=== PATIENT | female | born 1955 | race Caucasian/White ===

== ENCOUNTER 2018-07-12 12:45 | Day surgery (SDC) | payer OTHER ==
[2018-07-12] MEDS ORDERED: MIDAZOLAM 1 MG/ML 2 ML INJ ×2 (15:24)
[2018-07-12] MEDS ORDERED: FENTAnyl 50 MCG/ML VIAL (15:25)
[2018-07-12] MEDS ORDERED: PROPOFOL 40 ML (15:57)
[2018-07-12] MEDS ORDERED: LIDOCAINE 100 MG SYRINGE (15:57)
== END 2018-07-12 16:37 | disposition home or self-care (01) ==
LOC: GIL 12:45
DX: Z12.11 Encounter for screening for malignant neoplasm of colon (principal); K29.50 Unspecified chronic gastritis without bleeding; K64.8 Other hemorrhoids; K44.9 Diaphragmatic hernia without obstruction or gangrene
CPT/HCPCS: 43239; 88305; 88312